=== PATIENT | female | born 1990 | race Caucasian/White ===

== ENCOUNTER 2024-09-14 07:05 | Emergency (ER) | payer MEDICAID, OTHER ==
[~2024-09-14] VITALS: Ht 170.2 cm; Wt 73.0 kg
[~2024-09-14 07:05] MED LIST: EPIN0.3P3 IM; FAMO20TA8 MT; P20 MT
[2024-09-14 07:18] VITALS: O2SAT 100
[2024-09-14] MEDS: KETOROLAC 30MG/ML VIAL IM ONE (09:30)
[2024-09-14 10:29] LABS: HCG SCREEN NEGATIVE
[2024-09-14 10:32] LABS: CHLORIDE 108 mEq/L (98-107)
[2024-09-14 10:33] LABS: CARBON DIOXIDE 25 mEq/L (21-32); SODIUM 139 mEq/L (136-145)
[2024-09-14 10:34] LABS: CALCIUM 9.3 mg/dL (8.7-10.4)
[2024-09-14 10:39] LABS: CREATININE 0.7 mg/dL (0.6-1.0); GLUCOSE 97 mg/dL (70-105); UREA NITROGEN BLOOD 10 mg/dL (9-23)
[2024-09-14 10:43] LABS: BASOPHILS % 0.6 % (0.0-2.0); EOSINOPHILS % 2.3 % (0.0-5.0); HEMATOCRIT. 39.4 % (36.0-48.0); HEMOGLOBIN. 13.1 g/dL (12.0-16.0); LYMPHOCYTES % 28.1 % (20.0-50.0); MEAN CORPUSCULAR HEMOGLOBIN 28.6 pg (28.0-32.0); MEAN CORPUSCULAR HGB CONC 33.2 g/dL (31.0-37.0); MEAN CORPUSCULAR VOLUME 86.1 fL (81.0-99.0); MEAN PLATELET VOLUME 8.8 fl (7.4-10.4); MONOCYTES % 6.5 % (2.0-8.0); NEUTROPHILS % 62.5 % (40.0-76.0); PLATELET 277 x1000/uL (130-400); RED BLOOD CELL COUNT 4.58 mill/uL (4.2-5.4); RED CELL DISTRIBUTION WIDTH 14.1 % (11.6-14.6); WHITE BLOOD COUNT 9.3 x1000/uL (4.5-11.0)
[2024-09-14] MEDS ORDERED: IBUP-2029 MT (12:17)
[2024-09-14 13:05] VITALS: BP 110/64; PULSE 64; RESP 16; TEMP 36.94740; O2SAT 100
== END 2024-09-14 13:06 | disposition home or self-care (01) ==
LOC: ER 07:05
DX: D25.9 Leiomyoma of uterus, unspecified (principal); Z98.890 Other specified postprocedural states; Z79.899 Other long term (current) drug therapy
CPT/HCPCS: 99285; 76830; 76856; 80048; 81025; 84703; 85025; 36415; 96372; J1885

== ENCOUNTER 2024-11-28 18:45 | Emergency (ER) | payer MEDICAID ==
[~2024-11-28] VITALS: Ht 160 cm; Wt 78.0 kg
[~2024-11-28 18:45] MED LIST changes: +IBUP-2029 MT
[2024-11-28 18:46] VITALS: O2SAT 99
[2024-11-28 18:49] VITALS: BP 120/69; PULSE 61; RESP 16; TEMP 36.8; O2SAT 99
== END 2024-11-28 22:36 | disposition left against medical advice (07) ==
LOC: ER 18:45
DX: R10.9 Unspecified abdominal pain (principal); Z53.21 Procedure and treatment not carried out due to patient leaving prior to being seen by health care provider